=== PATIENT | female | born 1965 | race Caucasian/White ===

== ENCOUNTER 2023-11-09 16:13 | Inpatient (IN) | payer MEDICARE, OTHER ==
[~2023-11-09] VITALS: Ht 157.5 cm; Wt 75.3 kg
[2023-11-09] MEDS ORDERED: MAG HYDROX/AL HYDROX/SIMETH 30 ML LIQUID UDC PO PRN (19:00)
[2023-11-09] MEDS ORDERED: ZOLPIDEM 5 MG TABLET PO PRN (19:00)
[2023-11-09] MEDS ORDERED: MAGNESIUM HYDROXIDE 30 ML LIQUID UDC PO PRN (19:00)
[2023-11-09] MEDS ORDERED: LORAZEPAM 0.5 MG TABLET PO PRN (19:00)
[2023-11-09] MEDS ORDERED: ACETAMINOPHEN 650 MG SUPP.RECT RC PRN (19:00)
[2023-11-09] MEDS ORDERED: ACETAMINOPHEN 325 MG TABLET PO PRN (19:00)
[2023-11-09] MEDS ORDERED: ARIP15TA3 PO (19:56)
[2023-11-09] MEDS ORDERED: BENZ2AMP3 PO (19:56)
[2023-11-09 19:59] VITALS: BP 107/81; TEMP 97.8; O2SAT 98
[2023-11-09] MEDS: CLONAZEPAM 0.5 MG TABLET PO PRN (23:28)
[2023-11-10 07:53] VITALS: BP 122/69; TEMP 98.2; O2SAT 96
[2023-11-10 07:56] LABS: BILIRUBIN,TOTAL 1.3 mg/dL (0.2-1.0); CALCIUM 9.6 mg/dL (8.5-10.1); POTASSIUM 2.9 mmol/L (3.5-5.1); TOTAL PROTEIN, SERUM 8.3 g/dL (6.4-8.2)
[2023-11-10] MEDS: POTASSIUM CHLORIDE 10 MEQ TAB.PRT.SR PO SCH ×2 (11:01→15:22)
[2023-11-10 15:22] VITALS: BP 110/60; TEMP 98.2; O2SAT 98
[2023-11-10 19:59] VITALS: BP 118/64; TEMP 98.1; O2SAT 95
[2023-11-10] MEDS: QUETIAPINE FUMARATE 25 MG TABLET PO SCH (20:51)
[2023-11-10] MEDS: TEMAZEPAM 7.5 MG CAPSULE PO PRN (21:56)
[2023-11-11 08:05] VITALS: BP 100/64; TEMP 98.2; O2SAT 96
[2023-11-11] MEDS: ASPIRIN 81 MG TAB.CHEW PO SCH (10:20)
[2023-11-11 15:35] VITALS: BP 112/51; TEMP 97.8; O2SAT 96
[2023-11-11 20:18] VITALS: BP 116/56; TEMP 98.1; O2SAT 96
[2023-11-11] MEDS: ATORVASTATIN 40 MG TABLET PO SCH (21:01)
[2023-11-11] MEDS: QUETIAPINE FUMARATE 25 MG TABLET PO SCH (21:01)
[2023-11-12 07:42] VITALS: BP 126/72; TEMP 98.4; O2SAT 99
[2023-11-12] MEDS: ASPIRIN 81 MG TAB.CHEW PO SCH (09:24)
[2023-11-12 16:36] VITALS: BP 125/73; TEMP 98.2; O2SAT 99
[2023-11-12] MEDS: ATORVASTATIN 40 MG TABLET PO SCH (20:27)
[2023-11-12 20:28] VITALS: BP 108/60
[2023-11-12] MEDS: QUETIAPINE FUMARATE 25 MG TABLET PO SCH (20:28)
[2023-11-13 07:55] VITALS: BP 98/55; TEMP 98.3; O2SAT 98
[2023-11-13] MEDS: ASPIRIN 81 MG TAB.CHEW PO SCH (09:40)
[2023-11-13 16:02] VITALS: BP 117/75; TEMP 98.1; O2SAT 98
[2023-11-13 20:00] VITALS: BP 109/57; O2SAT 95
[2023-11-13] MEDS: QUETIAPINE FUMARATE 25 MG TABLET PO SCH (20:13)
[2023-11-13] MEDS: ATORVASTATIN 40 MG TABLET PO SCH (20:13)
[2023-11-14 08:01] VITALS: BP 124/79; TEMP 98.5; O2SAT 98
[2023-11-14] MEDS: ASPIRIN 81 MG TAB.CHEW PO SCH (08:40)
[2023-11-14] MEDS: GLUCERNA SHAKE 237 ML CAN PO SCH (16:11)
[2023-11-14 16:17] VITALS: BP 122/85; TEMP 98.2; O2SAT 98
[2023-11-14 20:00] VITALS: BP 116/45; TEMP 98.3; O2SAT 95
[2023-11-14] MEDS: ATORVASTATIN 40 MG TABLET PO SCH (20:58)
[2023-11-14] MEDS: QUETIAPINE FUMARATE 25 MG TABLET PO SCH (20:58)
[2023-11-15 07:58] VITALS: BP 106/69; TEMP 98.2; O2SAT 96
[2023-11-15] MEDS: GLUCERNA SHAKE 237 ML CAN PO SCH ×2 (08:26→17:29)
[2023-11-15] MEDS: ASPIRIN 81 MG TAB.CHEW PO SCH (09:14)
[2023-11-15 15:29] VITALS: BP 101/63; TEMP 97.6; O2SAT 94
[2023-11-15 20:00] VITALS: BP 112/64; TEMP 97; O2SAT 96
[2023-11-15] MEDS: ATORVASTATIN 40 MG TABLET PO SCH (20:37)
[2023-11-15] MEDS: QUETIAPINE FUMARATE 25 MG TABLET PO SCH (20:37)
[2023-11-16 07:38] LABS: BASOPHILS % (AUTO) 0.5 % (0.0-2.0); EOSINOPHILS % (AUTO) 0.5 % (0.0-7.0); HEMATOCRIT 37.1 % (31.2-41.9); LYMPHOCYTES # (AUTO) 2.2 K/uL (0.8-4.8); LYMPHOCYTES % (AUTO) 27.4 % (20.5-51.5); MEAN CORPUSCULAR HEMOGLOBIN 31.1 uug (24.7-32.8); MEAN CORPUSCULAR HGB CONC 35 g/dL (32.3-35.6); MEAN CORPUSCULAR VOLUME 89.2 fL (75.5-95.3); MONOCYTES # (AUTO) 0.7 K/uL (0.1-1.30); MONOCYTES % (AUTO) 9.1 % (0.0-11.0); NEUTROPHILS % (AUTO) 62.5 % (38.5-71.5); PLATELET COUNT (AUTO) 210 K/uL (179-408); RED BLOOD CELL COUNT(AUTO) 4.16 MIL/uL (3.63-4.92); RED CELL DISTRIBUTION WIDTH 13.7 % (12.3-17.7); WHITE BLOOD COUNT (AUTO) 8.1 K/uL (3.8-11.8)
[2023-11-16 07:43] VITALS: BP 100/58; TEMP 98; O2SAT 98
[2023-11-16 07:53] LABS: DIFFERENTIAL COMMENT 1
[2023-11-16 08:29] LABS: ALBUMIN 3.2 g/dL (3.4-5.0); BILIRUBIN,TOTAL 0.9 mg/dL (0.2-1.0); CALCIUM 8.7 mg/dL (8.5-10.1); CREATININE 0.7 mg/dL (0.6-1.3); PHOSPHOROUS 4.2 mg/dL (2.5-4.9); POTASSIUM 3.4 mmol/L (3.5-5.1); TOTAL PROTEIN, SERUM 6.9 g/dL (6.4-8.2)
[2023-11-16 09:01] LABS: THYROID STIMULATING HORMONE 1.039 mIU/mL (0.358-3.740)
[2023-11-16] MEDS ORDERED: POTASSIUM CHLORIDE 20 MEQ TAB.PRT.SR PO ONE (09:15)
[2023-11-16] MEDS: ASPIRIN 81 MG TAB.CHEW PO SCH (10:06)
[2023-11-16] MEDS: GLUCERNA SHAKE 237 ML CAN PO SCH ×2 (10:07→17:00)
[2023-11-16 15:27] VITALS: BP 110/62; TEMP 98.2; O2SAT 98
[2023-11-16 19:50] VITALS: BP 106/55; TEMP 98.1; O2SAT 96
[2023-11-16] MEDS: QUETIAPINE FUMARATE 25 MG TABLET PO SCH (20:29)
[2023-11-16] MEDS: ATORVASTATIN 40 MG TABLET PO SCH (20:29)
[2023-11-17 07:45] VITALS: BP 99/55; TEMP 98; O2SAT 93
[2023-11-17] MEDS: GLUCERNA SHAKE 237 ML CAN PO SCH ×2 (08:04→16:27)
[2023-11-17] MEDS: ASPIRIN 81 MG TAB.CHEW PO SCH (08:35)
[2023-11-17 15:00] VITALS: BP 104/65; TEMP 98; O2SAT 98
[2023-11-17 19:59] VITALS: BP 107/67; TEMP 98.1; O2SAT 95
[2023-11-17] MEDS: ATORVASTATIN 40 MG TABLET PO SCH (20:21)
[2023-11-17] MEDS: QUETIAPINE FUMARATE 25 MG TABLET PO SCH (20:22)
[2023-11-18] MEDS: ASPIRIN 81 MG TAB.CHEW PO SCH ×2 (08:32→08:37)
[2023-11-18] MEDS: GLUCERNA SHAKE 237 ML CAN PO SCH ×2 (08:33→17:12)
[2023-11-18 08:37] VITALS: BP 109/66; TEMP 98.2; O2SAT 96
[2023-11-18] MEDS: CLONAZEPAM 0.5 MG TABLET PO PRN (10:32)
[2023-11-18 15:06] VITALS: BP 110/71; TEMP 98.2; O2SAT 98
[2023-11-18] MEDS: ATORVASTATIN 40 MG TABLET PO SCH (20:09)
[2023-11-18] MEDS: QUETIAPINE FUMARATE 25 MG TABLET PO SCH (20:10)
[2023-11-18 20:17] VITALS: BP 116/64; TEMP 98.2; O2SAT 96
[2023-11-19 07:55] VITALS: BP 102/62; TEMP 98; O2SAT 98
[2023-11-19] MEDS: GLUCERNA SHAKE 237 ML CAN PO SCH ×2 (08:09→17:53)
[2023-11-19] MEDS: ASPIRIN 81 MG TAB.CHEW PO SCH (08:36)
[2023-11-19 16:10] VITALS: BP 94/67; TEMP 98; O2SAT 98
[2023-11-19 20:00] VITALS: BP 112/62; TEMP 98; O2SAT 96
[2023-11-19] MEDS: QUETIAPINE FUMARATE 25 MG TABLET PO SCH (21:25)
[2023-11-19] MEDS: ATORVASTATIN 40 MG TABLET PO SCH (21:25)
[2023-11-20 08:07] VITALS: BP 99/51; TEMP 98.1; O2SAT 98
[2023-11-20] MEDS: ASPIRIN 81 MG TAB.CHEW PO SCH (08:49)
[2023-11-20] MEDS: GLUCERNA SHAKE 237 ML CAN PO SCH ×2 (08:50→16:41)
[2023-11-20] MEDS: CLONAZEPAM 0.5 MG TABLET PO PRN (15:28)
[2023-11-20 16:41] VITALS: BP 98/58; TEMP 98; O2SAT 98
[2023-11-20 20:00] VITALS: BP 106/66; TEMP 97.9; O2SAT 98
[2023-11-20] MEDS: ATORVASTATIN 40 MG TABLET PO SCH (20:16)
[2023-11-20] MEDS: QUETIAPINE FUMARATE 25 MG TABLET PO SCH (20:16)
[2023-11-21 07:46] VITALS: BP 96/56; TEMP 98.2; O2SAT 97
[2023-11-21] MEDS: ASPIRIN 81 MG TAB.CHEW PO SCH (08:38)
[2023-11-21] MEDS: GLUCERNA SHAKE 237 ML CAN PO SCH ×2 (08:39→16:47)
[2023-11-21 16:07] VITALS: BP 99/53; TEMP 98.2; O2SAT 98
[2023-11-21 19:52] VITALS: BP 98/55; TEMP 98; O2SAT 98
[2023-11-21] MEDS: ATORVASTATIN 40 MG TABLET PO SCH (20:30)
[2023-11-21] MEDS ORDERED: QUETIAPINE FUMARATE 25 MG TABLET PO SCH (21:00)
[2023-11-21] MEDS: TEMAZEPAM 7.5 MG CAPSULE PO PRN (21:01)
[2023-11-22 08:00] VITALS: BP 90/52; TEMP 98; O2SAT 96
[2023-11-22] MEDS: GLUCERNA SHAKE 237 ML CAN PO SCH (08:00)
[2023-11-22] MEDS: ASPIRIN 81 MG TAB.CHEW PO SCH (09:05)
== END 2023-11-22 13:00 | DRG 885 ==
LOC: ER 16:16 → GPS 18:04
PROVIDERS: ADMIT Psychiatry & Neurology Psychiatry; ATTEND Nurse Practitioner Acute Care
DX: F29 Unspecified psychosis not due to a substance or known physiological condition (principal); R45.851 Suicidal ideations; D68.59 Other primary thrombophilia; R17 Unspecified jaundice; E66.01 Morbid (severe) obesity due to excess calories; Z68.30 Body mass index [BMI] 30.0-30.9, adult; T65.92XD Toxic effect of unspecified substance, intentional self-harm, subsequent encounter; Z91.51 Personal history of suicidal behavior; F20.9 Schizophrenia, unspecified; D16.4 Benign neoplasm of bones of skull and face; E78.5 Hyperlipidemia, unspecified; E87.6 Hypokalemia; R73.9 Hyperglycemia, unspecified; Z60.8 Other problems related to social environment
CPT/HCPCS: 36415; 70450; 71045; 83735; 84100; 84443; 85025; 93005